=== PATIENT | male | born 1980 | race Caucasian/White ===

== ENCOUNTER 2019-04-29 16:10 | Emergency (ER) | payer OTHER ==
[~2019-04-29] VITALS: Ht 152.4 cm; Wt 64.0 kg
--- NOTE | 2019-04-29 16:14 | NUR ---
PT AMBULATED TO BED 4.
[2019-04-29 16:18] VITALS: BP 114/76
--- NOTE | 2019-04-29 16:28 | NUR ---
C/O R KNEE PAIN 12/25 X1 DAY. PT STATES HE WAS WRESTLING AND HE TWISTED HIS KNEE THE WRONG WAY AND TODAY IT HURTS. AMBULATORY BUT PAIN INCREASED WITH WEIGHT BEARING. NO DISCOLORATION. HX: ESRD (HD M,W,F SHUNT TO L UPPER ARM) RX: DOES NOT KNOW ALL OF THE NAMES Addendum: 04/29/19 at 1713 by TESSA +SWELLING
--- NOTE | 2019-04-29 16:29 | NUR ---
X-Ray at bedside.
--- NOTE | 2019-04-29 17:16 | NUR ---
EMT AT BEDSIDE FOR KNEE IMMOBILIZER.
--- NOTE | 2019-04-29 17:30 | NUR ---
Patient discharged with v/s stable. Written and verbal after care instructions given and explained. Patient verbalized understanding. Ambulatory with steady gait. All questions addressed prior to discharge. Advised to follow up with PMD.
[2019-04-29 17:31] VITALS: BP 126/71
== END 2019-04-29 17:30 | disposition home or self-care (01) ==
LOC: MED 16:10
DX: S83.91XA Sprain of unspecified site of right knee, initial encounter (principal); M17.11 Unilateral primary osteoarthritis, right knee; N18.6 End stage renal disease; Z99.2 Dependence on renal dialysis; W50.0XXA Accidental hit or strike by another person, initial encounter; Y93.89 Activity, other specified; Y92.89 Other specified places as the place of occurrence of the external cause; Y99.8 Other external cause status
CPT/HCPCS: 73562; 99283

== ENCOUNTER 2020-07-30 07:09 | Emergency (ER) | payer OTHER ==
[~2020-07-30] VITALS: Ht 162.6 cm; Wt 64.9 kg
[2020-07-30 07:20] VITALS: BP 137/66
--- NOTE | 2020-07-30 07:23 | NUR ---
TO LOBBY A/W BED VIA W/C
--- NOTE | 2020-07-30 07:30 | NUR ---
RT FOOT PAIN, SWELLING, FOR 3 DAYS, NO TRAUMA NOR INJURY NOTED
--- NOTE | 2020-07-30 07:35 | NUR ---
SEEN AND EXAMINED BY ERMD WITH ORDERS.
[2020-07-30 08:15] VITALS: BP 137/66
== END 2020-07-30 08:15 | disposition home or self-care (01) ==
LOC: MED 07:09
DX: M77.51 Other enthesopathy of right foot and ankle (principal); L03.115 Cellulitis of right lower limb; N18.6 End stage renal disease; Z99.2 Dependence on renal dialysis
CPT/HCPCS: 99283

== ENCOUNTER 2020-11-12 01:32 | Inpatient (IN) | payer OTHER ==
[~2020-11-12] VITALS: Ht 160 cm; Wt 86.2 kg
[2020-11-12] VITALS (9 sets, daily range): BP systolic 113–186; BP diastolic 69–96
--- NOTE | 2020-11-12 02:40 | NUR ---
TO BED 8 VIA W/C FROM [facility] WITH C/O SWELLING TO HANDS. 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 PT IS POOR HISTORIAN, UNABLE TO RECALL CURRENT MEDICATIONS. "I LIVE IN MY CAR AND GO TO MY SISTERS HOUSE ONCE A MONTH TO GET MY ANTI-REJECTION MEDICATIONS" "I CAME TO THE HOSPITAL TONIGHT BECAUSE MY SISTER WAS WORRIED ABOUT ME" BILATERAL PEDAL EDEMA NOTED, PITTING EDEMA BILATERAL HANDS. LUNGS ARE DIMINISHED THROUGHOUT A & P. O2 SAT ON R/A = 82-84%. DR. GUTIERREZ AT BEDSIDE FOR EXAM PMH: CRF, KIDNEY TRANSPLANT, CHF UNKNOWN ALLERGIES
--- NOTE | 2020-11-12 03:07 | NUR ---
PTS SISTER CAROLA CALLED - PTS PCP IS DR.TEJINDER CHAPMAN AND NEPHROLPGIST IS FROM [facility]
--- NOTE | 2020-11-12 03:30 | NUR ---
PT WITH POOR VENOUS ACCESS. OLD DIALYSIS SHUNT TO LEFT ARM. 22G SL ESTABLISHED RIGHT F/A, LABS DRAWN
[2020-11-12 03:44] LABS: RSV NEGATIVE (NEGATIVE)
[2020-11-12 03:53] LABS: EOSINOPHILS # (AUTO) 0.1 K/uL (0-0.4); PLATELET COUNT (AUTO) 181 K/uL (140-450)
[2020-11-12 03:56] LABS: BASOPHILS % (AUTO) 1.2 % (0.0-2.0); EOSINOPHILS % (AUTO) 2.7 % (0.0-4.0); HEMATOCRIT 33.9 % (36-52); HEMOGLOBIN 11.2 g/dL (12.0-18.0); LYMPHOCYTES # (AUTO) 0.7 K/uL (2.0-11.5); LYMPHOCYTES % (AUTO) 30.6 % (20.5-51.1); MEAN CORPUSCULAR HEMOGLOBIN 34 pg (27-31); MEAN CORPUSCULAR HGB CONC 33 g/dL (33-37); MEAN CORPUSCULAR VOLUME 101.5 fL (80-94); MONOCYTES # (AUTO) 0.2 K/uL (0.8-1.0); MONOCYTES % (AUTO) 7.8 % (1.7-9.3); NEUTROPHILS # (AUTO) 1.4 K/uL (1.8-7.7); NEUTROPHILS % (AUTO) 57.7 % (42.2-75.2); RED BLOOD CELL COUNT(AUTO) 3.34 MIL/uL (4.20-6.10); RED CELL DISTRIBUTION WIDTH 15.7 % (11.6-13.7); WHITE BLOOD COUNT (AUTO) 2.4 K/uL (4.8-10.8)
[2020-11-12] MEDS ORDERED: FUROSEMIDE 40 MG/4 ML VIAL IVP ONE (04:05)
[2020-11-12] MEDS ORDERED: PIPERACILLIN/TAZOBACTAM 3.375 GM in DEXTROSE 5% 50 ML IV ONE (04:05)
[2020-11-12 04:08] LABS: ALBUMIN 4.2 g/dL (3.4-5.0); ANION GAP 9.3 (8-16); CARBON DIOXIDE 31.6 mmol/L (21-32); CREATININE 1.7 mg/dL (0.6-1.3); POTASSIUM 3.9 mmol/L (3.5-5.1); TOTAL BILIRUBIN 0.5 mg/dL (0.0-1.0)
--- NOTE | 2020-11-12 04:15 | NUR ---
SPOKE WITH FAMILY IN LOBBY. MED LIST OBTAINED
[2020-11-12] MEDS ORDERED: TACR1CAP17 PO (04:21)
[2020-11-12] MEDS ORDERED: CALC-575 PO (04:24)
[2020-11-12] MEDS ORDERED: LEVO0.173 PO (04:24)
[2020-11-12 04:32] LABS: PROTHROMBIN TIME 10.8 secs (10.8-13.4)
[2020-11-12] MEDS ORDERED: SYN.05 PO (04:33)
[2020-11-12] MEDS ORDERED: CEL250 PO (04:33)
[2020-11-12] MEDS ORDERED: B CO1CAP11 PO (04:33)
[2020-11-12] MEDS ORDERED: VALG450T PO (04:33)
[2020-11-12] MEDS ORDERED: LIOT0.008 PO (04:33)
[2020-11-12] MEDS ORDERED: PRED5TAB8 PO (04:33)
[2020-11-12] MEDS ORDERED: SEN30 PO ×2 (04:33)
[2020-11-12] MEDS ORDERED: PIPERACILLIN/TAZOBACTAM 3.375 GM VIAL IV ONE (04:36)
[2020-11-12 04:38] LABS: C-REACTIVE PROTEIN QUANT < 0.2 mg/dL (0.0-0.9)
[2020-11-12 04:57] LABS: CKMB RELATIVE INDEX 1.1 (0.0-2.5); CREATINE KINASE MB 5.4 ng/mL (0-3.6)
--- NOTE | 2020-11-12 05:01 | NUR ---
PT SBP ELEVATED 198/75. LASIX GIVEN TO PT. WILL REASSESS. PRIOR BP'S: 203/72 AT 0458, 199/72 AT 0446, AND 195/77 AT 0430
--- NOTE | 2020-11-12 05:01 | NUR ---
Note sanjuanita in EDM - 11/12/20 at 0505 by [email or web address] PT SBP ELAVATED 198/75. LASIX GIVEN TO PT. LISE ALEXANDER. PRIOR BP'S: 203/72 AT 0458, 199/72 AT 0446, AND 195/77 AT 0430
[2020-11-12] MEDS ORDERED: HYDROcodone/APAP 5/325 MG 1 TAB TAB PO PRN ×2 (05:05→13:25)
[2020-11-12] MEDS ORDERED: MORPHINE SULFATE 2 MG/ML SYR IVP PRN ×2 (05:05→13:25)
--- NOTE | 2020-11-12 05:40 | NUR ---
REPORT GIVEN TO GUILLAUME GRAY
--- NOTE | 2020-11-12 05:55 | NUR ---
Patient will be admitted to care of GUILLAUME GRAY. Admited to TELEMETRY. Will go to room 133A. Belongings list completed. TRANSPORT BY NISHANT ATTACH TO SENIOR CLERK AND O2 CONTINUOUS AT 3L NC ACCOMPANIED BY RN AND ERT
--- NOTE | 2020-11-12 06:15 | NUR ---
RECEIVED PATIENT FROM ER NURSE VIA DARREN FOR CONTINUITY OF CARE. ALERT AND ABLE TO MAKE NEEDS KNOWN. RESPIRATIONS EVEN, UNLABORED. CONTINUES ON O2 3L VIA NC, O2SAT 93%. S1/S2 AUSCULTATED. SKIN ASSESSMENT COMPLETED. SKIN WARM, DRY AND INTACT. SALINE LOCK TO RIGHT FOREARM 22G PATENT/INTACT. PATIENT HAS GENERALIZED BODY SWELLING. ABDOMEN SOFT, NONTENDER. BOWEL SOUNDS ACTIVE x4 QUADRANTS. PATIENT IS INCONTINENT OF B/B. PLAN OF CARE DISCUSSED. VS: BP 150/73 HR 74 RR 18 T 98.3 O2SAT: 93%. PATIENT ORIENTED TO ROOM/STAFF/CALL LIGHT. MRSA SCREEN COMPLETED. PCR COMPLETED IN THE ER, PENDING RESULTS. SAFETY PRECAUTIONS IN PLACE. ISOLATION PRECAUTIONS OBSERVED. CALL LIGHT PLACED WITHIN REACH.
--- NOTE | 2020-11-12 06:53 | NUR ---
PATIENT HAS BEEN SCREENED AND CATEGORIZED MODERATE NUTRITION RISK. PATIENT WILL BE SEEN WITHIN 3-5 DAYS OF ADMISSION. 11/15/20-11/17/20 BILLY CHATTERJEE MS, RDN
--- NOTE | 2020-11-12 07:22 | NUR ---
ENDORSED PATIENT TO AM SHIFT NURSE FOR CONTINUITY OF CARE.
[2020-11-12] MEDS ORDERED: NALOXONE 0.4 MG/ML VIAL IVP ONE ×2 (11:30→16:15)
--- NOTE | 2020-11-12 11:51 | NUR ---
NARCAN GIVEN VIA IVP PER DR. HANSON'S ORDER. PATIENT IS VERY DROWSY.
--- NOTE | 2020-11-12 12:15 | NUR ---
BUTLER INSERTED PER MD ORDER WITH CLEAR URINE OUTPUT. PATIENT WITH HYPOSPADIAS. PATIENT STILL DROWSY.
[2020-11-12] MEDS: PIPERACILLIN/TAZOBACTAM 2.25 GM in DEXTROSE 5% 50 ML IV SCH ×2 (12:55→21:36)
[2020-11-12 13:20] LABS: THYROID STIMULATING HORMONE 177.64 uIU/mL (0.34-3.74)
[2020-11-12] MEDS ORDERED: ZOLPIDEM 5 MG TAB PO PRN (13:25)
[2020-11-12] MEDS ORDERED: DOCUSATE SODIUM 100 MG GELCAP PO PRN (13:25)
[2020-11-12] MEDS ORDERED: ONDANSETRON 4 MG/2 ML VIAL IM/IVP PRN (13:25)
[2020-11-12] MEDS ORDERED: POTASSIUM CHLORIDE 10 MEQ TABER PO PRN ×2 (13:25)
[2020-11-12] MEDS ORDERED: MAG SULF 2000 MG/WATER PREMIX 50 ML IV PRN ×2 (13:25)
[2020-11-12] MEDS ORDERED: ACETAMINOPHEN 325 MG TAB PO PRN (13:25)
[2020-11-12] MEDS ORDERED: LORazepam 2 MG/ML VIAL IM/IVP PRN (13:25)
[2020-11-12] MEDS: hydrALAZINE 10 MG TAB PO SCH ×2 (13:46→18:02)
--- NOTE | 2020-11-12 13:46 | NUR ---
HYDRALAZINE GIVEN FOR HIGH BP 170/69/ HR 69. PATIENT IS STILL VERY DROWSY.
[2020-11-12 14:02] LABS: APPEARANCE,URINE CLEAR (CLEAR); BILIRUBIN,URINE NEGATIVE (NEGATIVE); BLOOD, URINE 1+ (NEGATIVE); COLOR,URINE YELLOW (YELLOW); LEUKOCYTE ESTERASE ,URINE NEGATIVE (NEGATIVE); NITRITE, URINE NEGATIVE (NEGATIVE); PH,URINE 5.5 (5.0-9.0); UGLUCOSE NEGATIVE (NEGATIVE)
[2020-11-12 14:21] LABS: WBC,URINE 0-5 /HPF (0-5)
[2020-11-12 14:42] LABS: BARBITURATE, URINE NEGATIVE ng/ml (NEG <=200); BENZODIAZEPINE, URINE NEGATIVE ng/mL (NEG <=200); CANNABINOID, URINE NEGATIVE ng/mL (NEG <=50); COCAINE, URINE NEGATIVE ng/mL (NEG <=300); OPIATE, URINE POSITIVE ng/mL (NEG <=2000); PHENCYCLIDINE SCREEN,URINE NEGATIVE ng/mL (NEG <=25)
[2020-11-12] MEDS ORDERED: LEVOTHYROXINE SODIUM 100 MCG VIAL IV SCH (15:10)
[2020-11-12 15:19] LABS: PHOSPHORUS 2.1 mg/dL (2.5-4.9)
[2020-11-12 15:20] LABS: MAGNESIUM 2.2 mg/dL (1.8-2.4); THYROID STIMULATING HORMONE 132.78 uIU/mL (0.34-3.74)
--- NOTE | 2020-11-12 16:13 | NUR ---
INFORMED DR. BOCANEGRA THAT PATIENT IS STILL VERY DROWSY. NEW ORDER OBTAINED. WILL CARRY OUT.
--- NOTE | 2020-11-12 16:46 | NUR ---
NARCAN 0.2 MG GIVEN VIA IVP.
--- NOTE | 2020-11-12 17:18 | NUR ---
CT OF HEAD DONE
--- NOTE | 2020-11-12 17:30 | NUR ---
TRANSFERRED PATIENT TO ICU DUE TO MYXEDEMA COMA, PER DR. BOCANEGRA'S ORDER.
--- NOTE | 2020-11-12 18:02 | NUR ---
HYDRALAZINE GIVEN, PATIENT IS ABLE TO WAKE UP AT THIS TIME. INFORMED PATIENT THAT HE IS TRANSFERRED TO ICU. PATIENT DENIES TAKING DRUGS, UNABLE THAT TRANSFERRED HIM TO ICU. EXPLAINED TO THE PATIENT WHAT'S GOING ON, PATIENT IS ALERT TO HIS NAME, AND PLACE. BUT STILL SLEEPY. FALL ASLEEP RIGHT AFTER ANSWER SIMPLE QUESTIONS.
--- NOTE | 2020-11-12 18:27 | NUR ---
UPDATED PATIENT'S SISTER CAROLA [phone] REGARDING PATIENT'S CONDITION AND INFORMED HER PATIENT BEING TRANSFERRED TO ICU.
--- NOTE | 2020-11-12 19:14 | NUR ---
ENDORSED PATIENT TO TRUCK DRIVER'S OFFSIDER RN FOR CONTINUITY OF CARE. V/S STABLE.
--- NOTE | 2020-11-12 19:30 | NUR ---
RECEIVED CARE AND REPORT FROM DAYSHIFT RN. UPON ENTERING THE ROOM AT BEDSIDE, PATIENT EYES CLOSED, ASLEEP. PATIENT SLIGHTLY DIFFICULT TO AROUSE WITH STIMULI, ALERT AND ORIENTED X2 TO PERSON AND , ABLE TO FOLLOW MOST COMMANDS. PATIENT IS LYING IN THE BED, HOB 35 DEGREES IN A POSITION OF COMFORT. NC ON AT 3 LPM, TOLERATING WELL, SATURATION AT 98%. PATIENT HAS ORDER FOR RENAL DIET. PATIENT IS CONNECTED TO CONTINUOUS CARDIC MONITOR, HR 70 AND RR 14, NO SIGNS OF DISTRESS NOTED. IV ACCESS SITES ARE RIGHT FA 22G AND LEFT UPPER ARM AV SHUNT, NO LONGER IN USE PER DAYSHIFT RN. DRIPS CURRENTLY RUNNING ARE NS 0.9% AT TKO 5 ML/HR. PATIENT ESTIMATED WEIGHT IS APPROXIMATELY 86.1 KG. PATIENT HAS A BUTLER CATHETER IN PLACE, SECURED, PATENT AND DRAINING WELL. PATIENT IS BEING OFFLOADED FROM PRESSURE POINTS WITH US OF PILLOWS AND FREQUENT REPOSITIONING. BED LOCKED AND LOWERED INTO A POSITION OF SAFETY. WILL CONTINUE TO CLOSELY MONITOR AND FREQUENTLY ROUND THROUGHOUT THE SHIFT.
--- NOTE | 2020-11-12 20:00 | NUR ---
PATIENT CONTINUES TO REST IN A POSITION OF COMFORT, SLEEPING. NO SIGNS OF DISTRESS NOTED. WILL COTNINUE TO CLOSELY MONITOR AND FREQUENTLY ROUND.
--- NOTE | 2020-11-12 20:15 | NUR ---
DR. CRUZ CAME BEDSIDE TO ASSESS AND UPDATE ON PATIENT STATUS.
--- NOTE | 2020-11-12 20:30 | NUR ---
RECEIVED CALL FROM NUCLEAR MEDICINE. LIZBETH ON THE PHONE STATED WILL RESCHEDULE LUNG SCAN FOR THE MORNING BETWEEN 0830 AND 0900. WILL ENDORSE INFORMATION TO DAYSHIFT.
[2020-11-12] MEDS: CALCIUM CARBONATE 500 MG TAB PO SCH (21:36)
[2020-11-12] MEDS: TACROLIMUS 0.5 MG CAP PO SCH (21:37)
[2020-11-12] MEDS: MYCOPHENOLATE 250 MG CAP PO SCH (21:56)
--- NOTE | 2020-11-12 22:00 | NUR ---
PATIENT SLEEPING IN A POSITION OF COMFORT, HR 70 AND RR 14, NO SIGNS OF DISTRESS NOTED. WILL CONTINUE TO CLOSELY MONITOR AND FREQUENTLY ROUND.
[2020-11-12] MEDS: HYDROCORTISONE NA SUCC 100 MG/2 ML VIAL IV SCH (23:22)
[2020-11-13] VITALS (21 sets, daily range): BP systolic 121–148; BP diastolic 57–99
--- NOTE | 2020-11-13 | NUR ---
NEURO STATUS REMAINS UNCHANGED, CONTINUES TO BE ALERT AND ORIENTED X2, TO PERSON AND . TOLERATING CURRENT THERAPIES AND OXYGEN WELL, HR 65 AND RR 14 ON THE MONITOR. WILL CONTINUE TO CLOSELY MONITOR AND FREQUENTLY ROUND.
--- NOTE | 2020-11-13 02:00 | NUR ---
WHEN AT BEDSIDE, PATIENT SLIGHTLY MORE ALERT, ALERT AND ORIENTED X3 TO PERSON, AND TIME. ABLE TO ANSWER MOST QUESTIONS APPROPRIATELY. PATIENT CONTINUES TO BE SLEEPY AND LETHARGIC. HR 66 AND RR 18 ON THE MONITOR, NO SIGNS OF DISTRESS NOTED. TOLERATING CURRENT OXYGEN AND OTHER THERAPIES WELL. WILL CONTINUE TO CLOSELY MONITOR AND FREQUENTLY ROUND.
--- NOTE | 2020-11-13 04:00 | NUR ---
PROVIDED GOWN, LINEN CHANGE, SPONGE BATH, REPOSITIONING, SAFETY CHECKS, ELISEO CARE, AND ORAL CARE. PATIENT STILL LETHARGIC AND OCCASIONALLY DESATURATES IN SLEEP TO 85% SATURATION. RT MADE AWARE AND FOLLOWED UP WITH PATIENT. WHEN MORE AWAKE, SATURATION BETWEEN 94%-99%, PATIENT STILL ON NASAL CANULA. NO SIGNS OF DISTRESS NOTED. WILL CONTINUE TO CLOSELY MONITOR AND FREQUENTLY ROUND.
[2020-11-13] MEDS: PIPERACILLIN/TAZOBACTAM 2.25 GM in DEXTROSE 5% 50 ML IV SCH ×3 (04:37→20:45)
[2020-11-13] MEDS: HYDROCORTISONE NA SUCC 100 MG/2 ML VIAL IV SCH ×3 (04:37→20:44)
[2020-11-13 05:41] LABS: ANION GAP 7.4 (8-16); CARBON DIOXIDE 35.3 mmol/L (21-32); CREATININE 1.6 mg/dL (0.6-1.3); POTASSIUM 3.7 mmol/L (3.5-5.1)
[2020-11-13 05:43] LABS: BASOPHILS % (AUTO) 0.9 % (0.0-2.0); EOSINOPHILS % (AUTO) 0.5 % (0.0-4.0); HEMATOCRIT 32.2 % (36-52); HEMOGLOBIN 10.8 g/dL (12.0-18.0); LYMPHOCYTES # (AUTO) 0.3 K/uL (2.0-11.5); LYMPHOCYTES % (AUTO) 11.6 % (20.5-51.1); MEAN CORPUSCULAR HEMOGLOBIN 34 pg (27-31); MEAN CORPUSCULAR HGB CONC 33 g/dL (33-37); MEAN CORPUSCULAR VOLUME 101.3 fL (80-94); MONOCYTES # (AUTO) 0.1 K/uL (0.8-1.0); MONOCYTES % (AUTO) 2.8 % (1.7-9.3); NEUTROPHILS # (AUTO) 2.1 K/uL (1.8-7.7); NEUTROPHILS % (AUTO) 84.2 % (42.2-75.2); PLATELET COUNT (AUTO) 153 K/uL (140-450); RED BLOOD CELL COUNT(AUTO) 3.18 MIL/uL (4.20-6.10); RED CELL DISTRIBUTION WIDTH 16.1 % (11.6-13.7); WHITE BLOOD COUNT (AUTO) 2.4 K/uL (4.8-10.8)
[2020-11-13 05:56] LABS: CHOL/HDL RATIO 3.4 (1-4.5); MAGNESIUM 2.3 mg/dL (1.8-2.4); PHOSPHORUS 2.9 mg/dL (2.5-4.9)
--- NOTE | 2020-11-13 06:00 | NUR ---
PATIENT RESTING IN A POSITION OF COMFORT, HOB 35 DEGREES, TOLERATING OXYGEN THERAPY WELL. NO SIGNS OF DISTRESS, VERY SLEEPY AND LETHARGIC. ONCE AWAKE, ABLE TO ANSWER MOST QUESTIONS APPROPRIATELY. WILL CONTINUE TO CLOSELY MONITOR AND FREQUENTLY ROUND.
--- NOTE | 2020-11-13 07:30 | NUR ---
REPORT AND CARE ENDORSED TO DAVIDE GALAVIZ.
--- NOTE | 2020-11-13 07:31 | NUR ---
RECEIVED REPORT FROM FARMWORKER GRAIN. PT IN BED. HOB ELEVATED. PT IS LETHARGIC, DIFFICULT TO AROUSE, MOVES EXTREMITIES AT TIMES, AOX2 WHEN AWAKE, FOLLOWS COMMANDS WHEN AWAKE, NO C/O PAIN, NO SOB, RESPIRATIONS ARE EVEN AND UNLABORED, SR ON MONITOR, SKIN WARM AND DRY TO TOUCH, ABD SOFT AND NON TENDER, AFEBRILE. RFA 22G INFUSING NS TKO, WITH OLD BRENNEN AV SHUNT. SAFETY MEASURES IN PLACE. WILL CONTINUE TO MONITOR.
[2020-11-13] MEDS: MYCOPHENOLATE 250 MG CAP PO SCH ×2 (08:46→20:49)
[2020-11-13] MEDS: CINACALCET 30 MG TAB PO SCH (08:46)
[2020-11-13] MEDS: predniSONE 5 MG TAB PO SCH (08:46)
[2020-11-13] MEDS: hydrALAZINE 10 MG TAB PO SCH ×3 (08:46→17:00)
[2020-11-13] MEDS: TACROLIMUS 0.5 MG CAP PO SCH ×2 (08:47→20:45)
[2020-11-13] MEDS: CALCIUM CARBONATE 500 MG TAB PO SCH ×2 (08:47→20:45)
[2020-11-13] MEDS: FUROSEMIDE 40 MG/4 ML VIAL IVP SCH (08:48)
[2020-11-13] MEDS ORDERED: LEVOTHYROXINE 0.05 MG TAB PO SCH (09:00)
[2020-11-13] MEDS ORDERED: LEVOTHYROXINE SODIUM 100 MCG VIAL IV SCH (09:00)
[2020-11-13] MEDS ORDERED: CINACALCET 30 MG TAB PO SCH (09:00)
--- NOTE | 2020-11-13 09:02 | NUR ---
DR SOTO AT BEDSIDE, VQ SCAN ORDER WAS CANCELED LAST NIGHT BY ---, IT IS NOT NEEDED AT THIS TIME PER DR SOTO.
--- NOTE | 2020-11-13 09:10 | NUR ---
PT CONFUSED AND NONCOMPLIANT WITH PO MEDS, PT SAID HE WILL TAKE THEM LATER. IV MEDS WERE GIVEN
--- NOTE | 2020-11-13 09:25 | NUR ---
PT. WITH LOW LISSETH SCALE AT HIGH RISK, CONTINUE TO FOLLOW PRESSURE INJURY PREVENTION INTERVENTIONS. -TURN AND REPOSITION PATIENT Q 2H -ASSESS AND MONITOR SKIN CONDITION DURING POSITION CHANGE -OFFLOAD BILATERAL HEELS BY PLACING PILLOWS UNDER CALVES AT ALL TIMES, UNLESS OTHERWISE CONTRAINDICATED -PRESSURE REDISTRIBUTION BY PLACING PILLOWS AND OFFLOADING SACRALCOCCYX -KEEP SKIN CLEAN AND DRY AT ALL TIMES.
[2020-11-13 09:45] LABS: T4 (THYROXINE) <0.4 ug/dL (4.5 - 12.0)
--- NOTE | 2020-11-13 10:20 | NUR ---
SEEN BY DR BOCANEGRA, NOTIFIED OF PT'S MEDICATION NONCOMPLIANCE
--- NOTE | 2020-11-13 10:45 | NUR ---
SOCIAL WORK NOTE: Patient's Orientation Unable To Assess Information Provided By CHRISS HASSAN - BROTHER Comments SW WAS UNABLE TO MEET PATIENT AT BEDSIDE. SW COMPLETED ASSESSMENT WITH PATIENT'S BROTHER. BROTHER STATED THAT PATIENT NOW LIVES AT [address] [place] [address] WITH HIM. Ramp Agent, Realtionship and Phone Number CHRISS HASSAN BROTHER [phone] CAROLA HASSAN SISTER [phone] Healthcare Power of Cleaning Crew Member No Does Patient Have a POLST No Identifying Problems No Social Work Triggers Is A Social Work Consult Needed No Mandate Report Filed No Explanation Of Identifying Problems PATIENT IS A 40-YEAR-OLD MALE ADMITTED FOR PNEUMONIA AND CHF. PATIENT HAS PMHX OF KIDNEY TRANSPLANT. PATIENT'S BROTHER REPORTED NO HX OF MENTAL HEALTH OR SUBSTANCE ABUSE. Admitted From Home Pre-Admission Level Of Functioning Status Independent/Ambulatory Prior Resources/Services Used In Last 12 Months No Prior Resources Used Prior DME No Prior DME Used Dialysis Comments N/A Living Situation Lives With Family House Other Living Situation/Comment BROTHER STATED THAT PATIENT NOW LIVES AT [address] [place] [address] WITH HIM. Patient Had Caregiver No Home Support No Caregiver Issues Financial Issues No Known Financial Issue Referral To The Financial Counselor Needed No Factors/Needs No D/C Needs Identified Pt/Rep Participated In Discharge Plan Yes Patient/Family Agress With Discharge Plan Yes Discharge Plan Comments TENTATIVE DISCHARGE PLAN IS FOR PATIENT TO RETURN HOME. DC Plan Status Initiated
[2020-11-13] MEDS ORDERED: COMMUNICATION ORDER MC ONE (12:00)
--- NOTE | 2020-11-13 12:30 | NUR ---
NOTIFIED DR BOCANEGRA OF VERY POOR ORAL NUTRITION, ORDERED IVF D5NS 60CC/HR
[2020-11-13] MEDS: DEXT 5% /NACL 0.9% 1,000 ML IV SCH (12:47)
[2020-11-13] MEDS ORDERED: [UNRECOGNIZED DRUG - OTHER] IV SCH (13:30)
[2020-11-13] MEDS ORDERED: NACL 0.9% IV SCH (13:30)
--- NOTE | 2020-11-13 14:47 | NUR ---
PT STILL LETHARGIC AND DIFFICULT TO AROUSE, FLACC 0, NO SOB
--- NOTE | 2020-11-13 15:30 | NUR ---
NOTIFIED DR BOCANEGRA THAT PT IS STILL REFUSING PO MEDS. MAY INSERT NGT PER
--- NOTE | 2020-11-13 15:45 | NUR ---
ATTEMPTED TO INSERT NGT BUT WAS RESISTING AND REFUSING. PT FINALLY AGREED TO TAKE MEDS ORALLY. TOLERATED PO MEDS WELL
--- NOTE | 2020-11-13 16:05 | NUR ---
ACCOMPANIED PT TO NUCLEAR MED FOR VQ SCAN. TRANSPORT MONITOR ATTACHED, ON PORTABLE OXYGEN 3L
--- NOTE | 2020-11-13 17:00 | NUR ---
RETURNED FROM VQ SCAN, NO APPARENT DISTRESS, VITAL SIGNS STABLE
--- NOTE | 2020-11-13 19:15 | NUR ---
RECEIVED PATIENT FROM AM SHIFT NURSE FOR CONTINUITY OF CARE. ALERT AND ABLE TO FOLLOW SIMPLE COMMANDS. RESPIRATIONS EVEN, SLIGHTLY LABORED. CONTINUES ON O2 3L VIA NC, O2SAT 93%. S1/S2 AUSCULTATED. SKIN WARM, DRY. IV SITE NOTED TO RIGHT FOREARM 22G PATENT/INTACT, INFUSING FLUIDS WELL. NO C/O PAIN. NO S/S ACUTE DISTRESS. ABDOMEN ROUND, BOWEL SOUNDS HYPOACTIVE. BUTLER CATHETER PATENT WITH YELLOW URINE DRAINING TO GRAVITY. PLAN OF CARE DISCUSSED. SAFETY PRECAUTIONS IN PLACE. FREQUENT VISUAL MONITORING BY ALL STAFF.
[2020-11-13] MEDS: LACTULOSE 20 GM/30 ML UDC PO SCH (20:46)
--- NOTE | 2020-11-13 21:39 | NUR ---
DUE MEDS GIVEN. PATIENT RESTING COMFORTABLY IN BED. PATIENT'S SISTER CAROLA CALLED AND GAVE UPDATE REGARDING PATIENT'S CONDITION. NO C/O PAIN. NO S/S ACUTE DISTRESS. SAFETY PRECAUTIONS IN PLACE. FREQUENT MONITORING BY ALL STAFF.
--- NOTE | 2020-11-13 23:05 | NUR ---
PATIENT TURNED AND REPOSITIONED FOR COMFORT. NO S/S ACUTE DISTRESS. NO C/O PAIN. SAFETY PRECAUTIONS IN PLACE.
[2020-11-14] VITALS (12 sets, daily range): BP systolic 113–175; BP diastolic 49–102
--- NOTE | 2020-11-14 01:24 | NUR ---
PATIENT IS ASLEEP. NO S/S ACUTE DISTRESS. NO C/O PAIN. SAFETY PRECAUTIONS IN PLACE. FREQUENT VISUAL ROUNDS BY ALL STAFF.
--- NOTE | 2020-11-14 03:35 | NUR ---
PATIENT RESTING COMFORTABLY IN BED. NO S/S ACUTE DISTRESS. SAFETY PRECAUTIONS IN PLACE. FREQUENT VISUAL ROUNDS BY ALL STAFF.
[2020-11-14] MEDS: DEXT 5% /NACL 0.9% 1,000 ML IV SCH ×2 (04:55→20:48)
[2020-11-14] MEDS: PIPERACILLIN/TAZOBACTAM 2.25 GM in DEXTROSE 5% 50 ML IV SCH ×3 (04:58→20:35)
[2020-11-14] MEDS: HYDROCORTISONE NA SUCC 100 MG/2 ML VIAL IV SCH ×3 (04:58→20:36)
[2020-11-14] MEDS: LEVOTHYROXINE 0.1 MG TAB PO SCH (05:44)
--- NOTE | 2020-11-14 05:49 | NUR ---
PATIENT TURNED AND REPOSITIONED. DUE MEDS GIVEN ORDERED. NO S/S ACUTE DISTRESS. NO C/O PAIN. SAFETY PRECAUTIONS IN PLACE. FREQUENT VISUAL ROUNDS BY ALL STAFF.
[2020-11-14 05:50] LABS: BASOPHILS % (AUTO) 0.3 % (0.0-2.0); EOSINOPHILS % (AUTO) 0.7 % (0.0-4.0); HEMATOCRIT 33.3 % (36-52); HEMOGLOBIN 11.1 g/dL (12.0-18.0); LYMPHOCYTES # (AUTO) 0.4 K/uL (2.0-11.5); LYMPHOCYTES % (AUTO) 9.4 % (20.5-51.1); MEAN CORPUSCULAR HEMOGLOBIN 34 pg (27-31); MEAN CORPUSCULAR HGB CONC 33 g/dL (33-37); MEAN CORPUSCULAR VOLUME 101.2 fL (80-94); MONOCYTES # (AUTO) 0.3 K/uL (0.8-1.0); MONOCYTES % (AUTO) 6.2 % (1.7-9.3); NEUTROPHILS # (AUTO) 3.5 K/uL (1.8-7.7); NEUTROPHILS % (AUTO) 83.4 % (42.2-75.2); PLATELET COUNT (AUTO) 161 K/uL (140-450); RED BLOOD CELL COUNT(AUTO) 3.29 MIL/uL (4.20-6.10); RED CELL DISTRIBUTION WIDTH 15.9 % (11.6-13.7); WHITE BLOOD COUNT (AUTO) 4.2 K/uL (4.8-10.8)
[2020-11-14 06:24] LABS: ANION GAP 7.5 (8-16); CARBON DIOXIDE 36.3 mmol/L (21-32); CREATININE 1.9 mg/dL (0.6-1.3); POTASSIUM 3.8 mmol/L (3.5-5.1)
[2020-11-14 06:32] LABS: MAGNESIUM 2.2 mg/dL (1.8-2.4); PHOSPHORUS 3.4 mg/dL (2.5-4.9)
--- NOTE | 2020-11-14 07:07 | NUR ---
ENDORSED PATIENT TO AM SHIFT NURSE FOR CONTINUITY OF CARE.
--- NOTE | 2020-11-14 07:13 | NUR ---
RECEIVED PATIENT FROM ARCHIVES SPECIALIST NURSE. PT RESTING IN BED. ABLE TO MAKE NEEDS KNOWN. RESPIRATIONS EVEN, SLIGHTLY LABORED. CONTINUES ON O2 3L VIA NC, O2SAT 93%. SKIN WARM AND DRY TO TOUCH. IV SITE ON RFA 22G IS CLEAN, DRY, AND INTACT WITH NO SIGNS OF DISTRESS. BUTLER CATHETER PATENT WITH YELLOW URINE DRAINING TO GRAVITY WITH NO CLOTS OR SEDIMENTS. SAFETY MEASURES IN PLACE. WILL CONTINUE TO MONITOR
--- NOTE | 2020-11-14 08:33 | NUR ---
DC PLANNIN YRS OLD MALE HOMELESS PATIENT WHO LIVES IN HIS CAR WAS ADMITTED FROM ER WITH A DX OF PNEUMONIA CHF. P HAS A HX OF KIDNEY TRANSPLANT IN 2020 AND HYPOTHYROIDISM. CXR SHOWED PNEUMONIA. RAPID COVID TEST AND PCR NEGATIVE. CT CHEST AND VQ SCAN SHOWED LOW PROBABILITY OF PE. HEAD CT SOWED SINUS DISEASE. 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 STARTED IV LASIX AND ZOSYN IV ABX , BLOOD AND URINE CULTURE PENDING. CONSULTED WITH PULMO AND NEPHRO. DC PLAN PER PT RESPONSE TO THE TREATMENT. CM TO FOLLOW Addendum: 11/20/20 at 1156 by Lizy Cole RN DC PLANNING: PER DR BOJORQUEZ PT REFUSED TO GO TO [facility]. NEW ORDER DC HOME WITH HOME HEALTH FAXED TO [facility] FOR PT. CM TO FOLLOW Addendum: 11/20/20 at 1423 by Vincent WRIGHT [facility] FAXED PHYSICIANS ORDERS TO [facility]. [facility] CONTACTED [facility] AND SPOKE TO YASMINE [phone]. PER YASMINE, SHE WILL CONTACT [facility] ONCE CLINICALS HAVE BEEN REVIEWED. Addendum: 11/20/20 at 1457 by Vincent WRIGHT [facility] WAS CONTACTED BY FROM [facility]. PER SHE IS ABLE TO TAKE PATIENT. [facility] NOTIFIED GUILLAUME NEGRON. NO FURTHER NEEDS IDENTIFIED.
[2020-11-14] MEDS: FUROSEMIDE 40 MG/4 ML VIAL IVP SCH (08:43)
[2020-11-14] MEDS: LACTULOSE 20 GM/30 ML UDC PO SCH ×2 (08:44→21:00)
[2020-11-14] MEDS: hydrALAZINE 10 MG TAB PO SCH ×4 (08:46→17:00)
[2020-11-14] MEDS: CALCIUM CARBONATE 500 MG TAB PO SCH ×2 (08:47→21:00)
[2020-11-14] MEDS: TACROLIMUS 0.5 MG CAP PO SCH ×2 (08:47→21:00)
[2020-11-14] MEDS: predniSONE 5 MG TAB PO SCH (08:47)
[2020-11-14] MEDS: CINACALCET 30 MG TAB PO SCH (09:02)
[2020-11-14] MEDS: MYCOPHENOLATE 250 MG CAP PO SCH ×2 (09:02→21:27)
--- NOTE | 2020-11-14 09:45 | NUR ---
ADMINISTERED SCHED MED PRESCRIBED PER MD ORDER. PT TOLERATED FAIRLY. PT DIFFICULT IN COOPERATION IN MEDICATION EDUCATION. PT WANTS TO JUST SLEEP INSTEAD OF TAKING MEDS. PT TOOK SCHED MED AFTER EDUCATION. WILL CONTINUE TO MONITOR
--- NOTE | 2020-11-14 11:40 | NUR ---
SISTER CAROLA CALLED AND WANTED AN UPDATE. UPDATE GIVEN TO SISTER. CAROLA VERBALIZED UNDERSTANDING. SAFETY MEASURES IN PLACE. WILL CONTINUE TO MONITOR
--- NOTE | 2020-11-14 13:15 | NUR ---
PT REFUSING TO TAKE MEDS. PT REFUSING TO COOPERATE AND OPEN MOUTH FOR PROPER MEDICATION EDUCATION. PT YELLS "NO! I DON'T WANNA TAKE IT!" EDUCATED PT ON PURPOSE OF HYDRALAZINE PT STATED "I DON'T CARE I DO NOT WANT IT." DR. SAHRA MCCLELLAN. AWAITING ORDERS
[2020-11-14] MEDS ORDERED: hydrALAZINE 20 MG/ML VIAL IVP PRN (14:25)
--- NOTE | 2020-11-14 14:33 | NUR ---
PT BP 163/102, 79 BPM. ADMINISTERED PRN PRESCRIBER PER MD ORDER. PT TOLERATED WELL. SAFETY MEASURES IN PLACE. WILL CONTINUE TO MONITOR
--- NOTE | 2020-11-14 16:00 | NUR ---
PT ASLEEP IN BED. AROUSABLE TO VERBAL AND TACTILE STIMULI. ABLE TO MAKE NEEDS KNOWN. RESPIRATIONS EVEN AND UNLABORED WITH NO SOB OR RESPIRATORY DISTRESS. NO SIGNS OF DISTRESS. SAFETY MEASURES IN PLACE. WILL CONTINUE TO MONITOR
--- NOTE | 2020-11-14 17:00 | NUR ---
AFTER SEVERAL ATTEMPTS, PT STILL NONCOMPLIANT WITH HIS PO MEDS. UPON ADMINISTERING, PT DOES NOT WANT TO OPEN MOUTH AND FOLLOW DIRECTIONS. EDUCATED PT ON IMPORTANCE OF BP MED MAINTENANCE. PT BECAME UPSET AND STATED "GO AWAY!" AND REFUSED TO OPEN HIS MOUTH. MD AND CHARGE AWARE. SAFETY MEASURES IN PLACE. WILL CONTINUE TO MONITOR
--- NOTE | 2020-11-14 18:30 | NUR ---
PT HAD SMALL BOWEL MOVEMENT. CLEANED PT AND REPOSITIONED HIM. PT TOLERATED FAIRLY. SAFETY MEASURES IN PLACE. WILL CONTINUE TO MONITOR
--- NOTE | 2020-11-14 19:07 | NUR ---
ENDORSED AT BEDSIDE TO NIGHTSHIFT NURSE FOR CONTINUITY OF CARE. PT IS STABLE
--- NOTE | 2020-11-14 19:08 | NUR ---
RECEIVED BEDSIDE REPORT FROM DAY RN. PT APPEARS TO BE SLEEPING WITH EYES CLOSED. RESPIRATIONS ARE EQUAL AND UNLABORED ON 3L NC SAT WELL 96%. IV ON R FA 22G IVF INFUSING PER ORDERS. SKIN IS WARM AND DRY TO THE TOUCH. BUTLER CATH DRAINING CLEAR YELLOW URINE BY GRAVITY. PT IS ON STANDARD ISOLATION. CALL LIGHT IS WITHIN REACH. WILL CONTINUE TO MONITOR.
[2020-11-14] MEDS ORDERED: CRUSHER, PILL MC ONE (20:30)
--- NOTE | 2020-11-14 21:27 | NUR ---
ADMINISTERED SCHED MEDS PER ORDER. PT DIFFICULT IN COOPERATION KEPT REFUSING MEDICATIONS. PT STATES, "NO." PT SPITTING AT NURSE. PT WANTS TO JUST SLEEP INSTEAD OF TAKING MEDS. CALLED PATIENT'S SISTER AND BROTHER TO HELP EDUCAT PT ON IMPORTANCE. LACTULOSE AND OSCAL NOT GIVEN. PER PT'S SISTER PT NO LONGER TAKES PROGRAF MED NOT GIVEN WILL F/U IN AM WITH MD. PT TOOK PO CELLCEPT AFTER CONTINUOS ENCOURAGEMENT AND EDUCATION. ALL NEEDS MET. WILL CONTINUE TO MONITOR.
--- NOTE | 2020-11-14 22:04 | NUR ---
PT APPEARS TO BE ASLEEP WITH EYES CLOSED. CHEST RISE AND FALL NOTED. NO S/S OF DISTRESS. WILL CONTINUE TO MONITOR.
[2020-11-15] VITALS (15 sets, daily range): BP systolic 125–167; BP diastolic 62–107
--- NOTE | 2020-11-15 00:01 | NUR ---
ROUNDS MADE. PATIENT APPEARS TO BE SLEEPING. CHEST RISE AND FALL NOTED. CALL LIGHT IS WITHIN REACH.
--- NOTE | 2020-11-15 02:02 | NUR ---
MADE ROUNDS. PATIENT APPEARS TO BE SLEEPING. CHEST RISE AND FALL NOTED.CALL LIGHT IS WITHIN REACH.
[2020-11-15] MEDS: PIPERACILLIN/TAZOBACTAM 2.25 GM in DEXTROSE 5% 50 ML IV SCH ×3 (04:28→20:37)
[2020-11-15] MEDS: HYDROCORTISONE NA SUCC 100 MG/2 ML VIAL IV SCH ×3 (04:28→20:27)
--- NOTE | 2020-11-15 04:28 | NUR ---
PATIENT WAS CLEANED AND REPOSITION. SELENE MEDICATIONS GIVEN PER ORDERS. ALL SAFETY MEASURES ARE IN PLACE. WILL CONTINUE TO MONITOR.
[2020-11-15] MEDS: LEVOTHYROXINE 0.1 MG TAB PO SCH (06:01)
[2020-11-15 06:02] LABS: BASOPHILS % (AUTO) 0.4 % (0.0-2.0); EOSINOPHILS % (AUTO) 0.2 % (0.0-4.0); HEMATOCRIT 32.2 % (36-52); HEMOGLOBIN 10.6 g/dL (12.0-18.0); LYMPHOCYTES # (AUTO) 0.3 K/uL (2.0-11.5); LYMPHOCYTES % (AUTO) 9.1 % (20.5-51.1); MEAN CORPUSCULAR HEMOGLOBIN 34 pg (27-31); MEAN CORPUSCULAR HGB CONC 33 g/dL (33-37); MEAN CORPUSCULAR VOLUME 103.3 fL (80-94); MONOCYTES # (AUTO) 0.2 K/uL (0.8-1.0); MONOCYTES % (AUTO) 5.4 % (1.7-9.3); NEUTROPHILS # (AUTO) 3.2 K/uL (1.8-7.7); NEUTROPHILS % (AUTO) 84.9 % (42.2-75.2); PLATELET COUNT (AUTO) 176 K/uL (140-450); RED BLOOD CELL COUNT(AUTO) 3.11 MIL/uL (4.20-6.10); RED CELL DISTRIBUTION WIDTH 16.1 % (11.6-13.7); WHITE BLOOD COUNT (AUTO) 3.8 K/uL (4.8-10.8)
[2020-11-15 06:51] LABS: ANION GAP 8.5 (8-16); CREATININE 1.8 mg/dL (0.6-1.3); POTASSIUM 3.5 mmol/L (3.5-5.1)
--- NOTE | 2020-11-15 07:15 | NUR ---
GAVE BEDSIDE REPORT TO DAY RN. PT ENDORSED IN STABLE CONDITION.
--- NOTE | 2020-11-15 07:20 | NUR ---
RECEIVED BEDSIDE REPORT FROM NIGHTSHIFT NURSE. PT RESTING IN BED. ABLE TO MAKE SOME NEEDS KNOWN. RESPIRATIONS EVEN AND UNLABORED WITH NO SOB OR RESPIRATORY DISTRESS. SKIN WARM AND DRY TO TOUCH. IV SITE IN BRITTANY 20G IS CLEAN, DRY, AND INTACT. SAFETY MEASURES IN PLACE. WILL CONTINUE TO MONITOR
[2020-11-15] MEDS: CINACALCET 30 MG TAB PO SCH (08:50)
[2020-11-15] MEDS: CALCIUM CARBONATE 500 MG TAB PO SCH ×2 (08:54→20:31)
[2020-11-15] MEDS: MYCOPHENOLATE 250 MG CAP PO SCH ×2 (08:56→20:38)
[2020-11-15] MEDS: predniSONE 5 MG TAB PO SCH (08:58)
[2020-11-15] MEDS: hydrALAZINE 10 MG TAB PO SCH ×3 (08:58→17:57)
[2020-11-15] MEDS: FUROSEMIDE 40 MG/4 ML VIAL IVP SCH (08:58)
[2020-11-15] MEDS: LACTULOSE 20 GM/30 ML UDC PO SCH ×2 (08:58→20:30)
[2020-11-15] MEDS: TACROLIMUS 0.5 MG CAP PO SCH (09:00)
[2020-11-15] MEDS ORDERED: LEVOTHYROXINE SODIUM 100 MCG VIAL IV SCH (09:22)
--- NOTE | 2020-11-15 09:30 | NUR ---
PT REFUSING TO TAKE PO MEDS. PT SCREAMS "NO!" WHEN ATTEMPTING TO ADMINISTER MEDS. PT TURNS HEAD TO PREVENT ADMINISTRATION AND PT SPITS MEDICATION OUT WHEN GIVEN TO PATIENT. PT STARTED TO GET ANGRY AND COMBATIVE WHILE SCREAMING PROFANITIES AT STAFF. EDUCATED PT ON MEDICATION PROTOCOL AND PT STATED "GO AWAY!" AND CONTINUED PROFANITIES. PT DID NOT WANT TO EAT BREAKFAST. PT STATED THAT HE IS NOT HUNGRY AND WANTS TO BE LEFT ALONE. IV AND SQ MEDS WERE GIVEN. WILL ATTEMPT AGAIN. MD AND CHARGE AWARE. WILL CONTINUE TO MONITOR
--- NOTE | 2020-11-15 09:40 | NUR ---
ABG RESULTS GIVEN TO NO NEW ORDERS AT THIS TIME.
--- NOTE | 2020-11-15 10:00 | NUR ---
PT HAD LARGE BM. CLEANED AND REPOSITIONED PATIENT. PT TOLERATED FAIRLY WHILE PT YELLING "STOP!" AT STAFF. EDUCATED PT ON PROPER BATHROOM HYGIENE AND PT STILL STATED "STOP IT!" SAFETY MEASURES IN PLACE. WILL CONTINUE TO MONITOR
--- NOTE | 2020-11-15 10:20 | NUR ---
PT NEEDS PICC LINE. OBTAINED CONSENT FROM SISTER CAROLA [phone] WITH VERIFICATION FROM SECOND NURSE. WILL PAGE PICC LINE NURSE.
--- NOTE | 2020-11-15 10:30 | NUR ---
PT TAKING OFF GOWN, PULLING AT IV LINE, AND TAKING OFF NASAL CANNULA. PT AAOX1. REORIENTED PT BUT PT STILL CONFUSED. WILL CONTINUE TO MONITOR
--- NOTE | 2020-11-15 10:43 | NUR ---
SPOKE WITH PICC LINE AND JUDI IS GOING TO BE THE NURSE INSERTING FOR PT. AWAITING CALL FROM JUDI. WILL CONTINUE TO MONITOR
--- NOTE | 2020-11-15 11:03 | NUR ---
SPOKE TO AND GAVE ABG RESULTS PHYSICIAN STATES TO MONITOR PT CLOSELY NO NEW ORDERS AT THIS. ABG TO BE ORDERED FOR TOMORROW MORNING.
--- NOTE | 2020-11-15 11:40 | NUR ---
PER THE PICC LINE NURSE BILL, NEED NEPHRO CLEARANCE PRIOR TO PICC LINE INSERTION. PAGED. DR. GAMBINO AND PER DR. GAMBINO, PT IS CLEAR FOR PICC LINE PLACEMENT. SAFETY MEASURES IN PLACE. WILL CONTINUE TO MONITOR
--- NOTE | 2020-11-15 12:00 | NUR ---
INSERTED NG TUBE PRESCRIBED PER MD ORDER. PT TOLERATING POORLY. PT MOVING HEAD AND REFUSING TO COOPERATE. SUCCESSFULLY INSERTED NGT AWAITING CHEST XRAY. WILL CONTINUE TO MONITOR
--- NOTE | 2020-11-15 12:30 | NUR ---
PICC LINE NURSE BILL IS HERE. REPORT GIVEN AT BEDSIDE. NEWLY INSERTED PICC LINE IN BRITTANY IS CLEAN, DRY, AND INTACT. PT TOLERATED WELL. SAFETY MEASURES IN PLACE. WILL CONTINUE TO MONITOR
--- NOTE | 2020-11-15 13:15 | NUR ---
PICC LINE IS CLEARED FOR USE. ADMINSITERED SCHED MED PRESCRIBED PER MD ORDER. PT TOLERATED FAIRLY. PT LETHARGIC AND SLEEPY. SAFETY MEASURES IN PLACE. WILL CONTINUE TO MONITOR
[2020-11-15] MEDS: DEXT 5% /NACL 0.9% 1,000 ML IV SCH (14:11)
--- NOTE | 2020-11-15 15:15 | NUR ---
TUBE FEEDING RECOMMENDATIONS FOR FNS CONSULT: GLUCERNA 1.2 @ 60 ML/HR. START AT 10 ML/HR AND INCREASE BY 10 ML/HR Q4H TO AVOID REFEEDING SYNDROME. FREE WATER FLUSH OF 50 ML Q4H. -THIS WILL PROVIDE 1728 KCAL AND 86 GM OF PROTEIN MEETING ADEQUATE NUTRITIONAL NEEDS. JAKE MILLER RD
--- NOTE | 2020-11-15 15:22 | NUR ---
PT HAD EPISODE OF MED BM. CLEANED UP PATIENT AND REPOSITIONED HIM. PT TOLERATED FAIRLY. PT BECAME ANGRY AND COMBATIVE WHEN TURNING AND REPOSITIONING. EDUCATED PT ON HOW TO PROPERLY TREAT [facility] DURING THE HOSPITAL STAY. PT RESPONDED WITH "SHUT UP AND LEAVE ME ALONE!" WILL CONTINUE TO MONITOR
--- NOTE | 2020-11-15 16:30 | NUR ---
STARTED PT ON TUBE FEEDINGS. NO RESIDUAL PRIOR TO ADMINISTERING. STARTED GLUCERNA 1.2 AT 10ML. WILL ENDORSE TO NIGHTSHIFT TO INCREASE RATE AT 2030 TO 20ML IF PT TOLERATING WELL. WILL CONTINUE TO MONITOR
--- NOTE | 2020-11-15 17:15 | NUR ---
ADMINISTERED SCHED MED PRESCRIBED PER MD ORDER VIA NGT. PT TOLERATED WELL. SAFETY MEASURES IN PLACE. WILL CONTINUE TO MONITOR
--- NOTE | 2020-11-15 17:58 | NUR ---
PT HAD A LARGE BM. CLEANED AND REPOSITIONED PATIENT. PT TOLERATED FAIRLY. PT SCREAMING "STOP!" AT STAFF WHILE TURNING, CHANGING, AND CLEANING. SAFETY MEASURES IN PLACE. WILL CONTINUE TO MONITOR
--- NOTE | 2020-11-15 19:25 | NUR ---
ENDORSED AT BEDSIDE FOR CONTINUITY OF CARE. PT IS STABLE
--- NOTE | 2020-11-15 19:30 | NUR ---
RECEIVED CARE REPORT FROM DAYSHIFT RN. UPON ARRIVING BEDSIDE, PATIENT ALERT AND ORIENTED X2 TO PERSON AND PLACE, OCCASIONALLY CONFUSED AND SHOUTING AT TIMES. HOB 35 DEGREES PATIENT IS ON NASAL CANULA 5 LPM, TOLERATING WELL, RR 14 AND OXYGEN SATURATION AT 99%, NO SIGNS OF DISTRESS NOTED. PATIENT HAS AN NG TUBE IN THE LEFT NARE, PATENT, INTACT, AUSCULTATED, ASPIRATED AND SECURED TO THE PATIENT. RESIDUALS CURRENTLY 5 ML, TOLERATING WELL. TUBE FEEDING ORDER GLUCERNA 1.2 AT A RATE OF 10 ML/HR, FWF 50 ML Q4. PATIENT CONNECTED TO CONTINUOUS CARDIAC MONITORING, NSR AT Q76 BPM ON THE MONITOR, WILL CONTINUE TO MONITOR. IV ACCESS SITES INCLUDE RIGHT UPPER ARM PICC LINE DOUBLE LUMEN AND OLD/NOT USED LEFT AV SHUNT. PATIENT DRIPS CURRENTLY RUNNING ARE D5/0.9% NS AT 60 ML/HR. PATIENT, TOLERATING WELL. APPROXIMATE WEIGHT IS 86.1 KG. PATIENT HAS A BUTLER CATHETER IN PLACE, SECURED, PATENT AND DRAINING WELL. SKINS INTACT, OLD SCARS FROM PREVIOUS SURGERIES NOTED ON THE ABDOMEN AND CHEST. PATIENT FOUND WITH BILATERAL SOFT WRIST RESTRAINTS ON WITH MD ORDER. WRIST RESTRAINTS TO BE REMOVED Q 2 HOURS FOR 15 MINUTES THROUGHOUT SHIFT. WRIST PMSC'S INTACT AND WNL. PATIENT BEING OFFLOADED FROM PRESSURE POINTS WITH USE OF PILLOWS AND FREQUENT REPOSITIONING. BED LOCKED AND LOWERED INTO A POSITION OF SAFETY. WILL CONTINUE TO CLOSELY MONITOR AND FREQUENTLY ROUND THROUGHOUT THE SHIFT.
--- NOTE | 2020-11-15 20:45 | NUR ---
UPDATED FAMILY ON PATIENT STATUS.
--- NOTE | 2020-11-15 22:00 | NUR ---
PATIENT CONTINUES TO REST IN A POSITION OF COMFORT, TOLERATING NC 5 LPM WELL, NO SIGNS OF DISTRESS. REMOVED BILATERAL WRIST RESTRAINTS AT THIS TIME, PATIENT ASLEEP, MONITORING CLOSELY. HR 84 AND RR 16 ON THE MONITOR. WILL CONTINUE TO CLOSELY MONITOR AND FREQUENTLY ROUND.
[2020-11-16] VITALS (17 sets, daily range): BP systolic 114–154; BP diastolic 47–85
--- NOTE | 2020-11-16 | NUR ---
PATIENT CONTINUES TO REST IN A POSITION OF COMFORT, HOB 35 DEGREES, TOLERATING OXYGEN THERPY WELL, SATURATION AT 96%. HR 79 ON THE MONITOR, NO SIGNS OF DISTRESS NOTED. PATIENT HAD 1 BM, LIQUID STOOL, BROWN IN COLOR. PATIENT GOWN, BED LINENS AND PATIENT CLEANED/CHANGED/DRY. CONTINUE TO FREQUENTLY REPOSITION PATIENT. PATIENT CONTINUES TO REMAIN CONFUSED WHEN COMMUNICATING WITH NURSES EDUCATOR. WILL CONTINUE TO CLOSELY MONITOR AND FREQUENTLY ROUND.
--- NOTE | 2020-11-16 02:00 | NUR ---
HR 71, RR 14, OXYGEN 96% ON THE MONITOR, NO SIGNS OF DISTRESS NOTED. PATIENT CONTINUES TO SLEEP IN A POSITION OF COMFORT, TOLERATING CURRENT THERAPIES WELL. FREQUENTLY REPOSITIONED, RESTRAINTS CONTINUE TO BE OFF, WILL CONTINUE TO CLOSELY MONITOR AND FREQUENTLY ROUND.
--- NOTE | 2020-11-16 04:00 | NUR ---
REPOSITIONED FREQUENTLY, GOWN CHANGE, SPONGE BATH, AND SAFETY CHECKS. RESTRAINTS CONTINUE TO BE OFF AT THIS TIME, CLOSE MONITORING OF PATIENT, STILL RESTING AND TRYING TO SLEEP. PATIENT STATED HAVING SOME BACK PAIN. PRN PAIN MEDICATION GIVEN. HR 81, RR 16, AND SATURATION 95%, CONTINUES TO TOLERATE NC AND OTHER THERAPIES WELL. WILL CONTINUE TO CLOSELY MONITOR AND FREQUENTLY ROUND.
[2020-11-16] MEDS: PIPERACILLIN/TAZOBACTAM 2.25 GM in DEXTROSE 5% 50 ML IV SCH ×3 (05:05→20:07)
[2020-11-16] MEDS: HYDROCORTISONE NA SUCC 100 MG/2 ML VIAL IV SCH (05:05)
[2020-11-16 05:21] LABS: BASOPHILS % (AUTO) 0.2 % (0.0-2.0); EOSINOPHILS % (AUTO) 0.1 % (0.0-4.0); HEMATOCRIT 34.6 % (36-52); HEMOGLOBIN 11.3 g/dL (12.0-18.0); LYMPHOCYTES # (AUTO) 0.4 K/uL (2.0-11.5); MEAN CORPUSCULAR HEMOGLOBIN 33 pg (27-31); MEAN CORPUSCULAR HGB CONC 33 g/dL (33-37); MEAN CORPUSCULAR VOLUME 101.5 fL (80-94); MONOCYTES # (AUTO) 0.1 K/uL (0.8-1.0); MONOCYTES % (AUTO) 3.7 % (1.7-9.3); NEUTROPHILS # (AUTO) 2.6 K/uL (1.8-7.7); PLATELET COUNT (AUTO) 159 K/uL (140-450); RED CELL DISTRIBUTION WIDTH 15.8 % (11.6-13.7); WHITE BLOOD COUNT (AUTO) 3.1 K/uL (4.8-10.8)
[2020-11-16 05:41] LABS: ANION GAP 5.1 (8-16); CREATININE 1.5 mg/dL (0.6-1.3)
[2020-11-16 05:47] LABS: PHOSPHORUS 1.2 mg/dL (2.5-4.9)
[2020-11-16] MEDS: DEXT 5% /NACL 0.9% 1,000 ML IV SCH (05:55)
--- NOTE | 2020-11-16 06:00 | NUR ---
PATIENT ASLEEP, NO SIGNS OF DISTRESS NOTED. TOLERATING CURRENT THERAPIES WELL. NO COMPLAINTS OF PAIN. HR 62, RR 14, SATURATION 97%. RESTING IN A POSITION OF COMFORT. WILL CONTINUE TO CLOSELY MONITOR AND FREQUENTLY ROUND.
[2020-11-16 06:05] LABS: POTASSIUM 2.9 mmol/L (3.5-5.1)
[2020-11-16 06:07] LABS: CARBON DIOXIDE 40.8 mmol/L (21-32)
--- NOTE | 2020-11-16 06:15 | NUR ---
CALLED FOR DR. BOCANEGRA TO REPORT CRITICAL LAB VALUES OF POTASSIUM 2.9 AND CO2 40.8. SPOKE WITH DR. BENAVIDES THE SIMULATION TECHNICIAN MD, GIVEN ORDER TO GIVE K RIDER 40 MEQ. WILL CARRY OUT ORDERS.
[2020-11-16] MEDS ORDERED: KCL 20 MEQ/WATER INJ PREMIX 200 ML IV SCH (06:30)
--- NOTE | 2020-11-16 07:15 | NUR ---
GAVE REPORT AND ENDORSED CARE TO DAVIDE GALAVIZ.
--- NOTE | 2020-11-16 07:20 | NUR ---
RECEIVED REPORT FROM NIGHT RN FOR CONTINUITY OF CARE. PATIENT IS AO TO SELF AND CURRENTLY RESTING. NO SIGNS OF DISTRESS OR PAIN. SR ON MONITOR. 5L NC. BRITTANY PICC INFUSING D5NS AT 60 ML/HR. LEFT AV FISTULA ACCESS NOT IN USE. NG TUBE IN PLACE, RUNNING GLUCERNA AT 30 ML/H WITH 50 ML FWF Q6H. BUTLER CATH IN PLACE. SAFETY MEASURES, EXTENSION SPECIALIST, AND PULSE OXIMETER IN PLACE. BED IN LOW POSITION. HEAD OF BED AT 30 DEGREES. WILL CONTINUE TO MONITOR.
--- NOTE | 2020-11-16 08:35 | NUR ---
DR. BENAVIDES ROUNDING AND UPDATED ON PATIENT CONDITION. WILL CONTINUE TO MONITOR.
[2020-11-16] MEDS ORDERED: LEVOTHYROXINE SODIUM 100 MCG VIAL IV SCH (09:00)
--- NOTE | 2020-11-16 09:22 | NUR ---
P T REFUSED ABG AT THIS TIME GUILLAUME HERNANDEZ
[2020-11-16] MEDS: CINACALCET 30 MG TAB PO SCH (10:05)
[2020-11-16] MEDS: CALCIUM CARBONATE 500 MG TAB PO SCH ×2 (10:06→20:11)
[2020-11-16] MEDS: MYCOPHENOLATE 250 MG CAP PO SCH ×2 (10:06→20:10)
[2020-11-16] MEDS: LACTULOSE 20 GM/30 ML UDC PO SCH ×2 (10:06→20:11)
[2020-11-16] MEDS: hydrALAZINE 10 MG TAB PO SCH ×3 (10:06→17:14)
[2020-11-16] MEDS: predniSONE 5 MG TAB PO SCH (10:07)
--- NOTE | 2020-11-16 10:30 | NUR ---
CHECKED ON PATIENT, ADMINISTERED SCHEDULED AM MEDS, PATIENT RESTING WILL CONTINUE TO MONITOR.
--- NOTE | 2020-11-16 12:15 | NUR ---
CHECKED ON PATIENT, NO SIGNS OF DISTRESS OR PAIN. WILL CONTINUE TO MONITOR.
--- NOTE | 2020-11-16 14:16 | NUR ---
11/16/20 RD INITIAL ASSESSMENT COMPLETED PLEASE REFER TO NUTRITION ASSESSMENT UNDER CARE ACTIVITY FOR ESTIMATED NUTRITIONAL NEEDS. 1. RECOMMENDED GLUCERNA 1.2 @ 60 ML/HR -THIS PROVIDES 1440 ML OF VOLUME, 1728 KCAL AND 86 GM OF PROTEIN. 2. RECOMMEND FLUSH OF 50 ML Q4H 3. IF/WHEN PATIENT BECOMES MORE ALERT AND ORIENTATED RECOMMEND A SWALLOW EVALUATION 4. RD TO FOLLOW-UP 2-3 DAYS, HIGH RISK JAKE MILLER, JACK
--- NOTE | 2020-11-16 14:45 | NUR ---
CHECKED ON PATIENT, NO SIGNS OF DISTRESS. PROVIDED ORAL CARE, HYGIENE CARE, AND BUTLER CARE. WILL CONTINUE TO MONITOR.
[2020-11-16 14:58] LABS: ANION GAP 3.8 (8-16); CREATININE 1.5 mg/dL (0.6-1.3); POTASSIUM 3.2 mmol/L (3.5-5.1)
[2020-11-16 15:02] LABS: CARBON DIOXIDE 41.4 mmol/L (21-32)
[2020-11-16 15:05] LABS: TACROLIMUS 5.8 ng/mL (2.0 - 20.0)
--- NOTE | 2020-11-16 17:35 | NUR ---
CHECKED ON PATIENT, ADMINISTERED EVENING MEDS. NO SIGNS OF DISTRESS OR PAIN. WILL CONTINUE TO MONITOR.
--- NOTE | 2020-11-16 18:55 | NUR ---
CHECKED ON PATIENT, NO SIGNS OF DISTRESS OR PAIN. WILL CONTINUE TO MONITOR.
--- NOTE | 2020-11-16 19:26 | NUR ---
ENDORSED CARE TO LOW VOLTAGE TECHNICIAN NURSE, RUCHI GALAVIZ, FOR CONTINUITY OF CARE. Addendum: 11/18/20 at 1727 by Rhonda Garrett RN RN RESTRAINT ON FROM 0700 TO 1430 (7.5 HOURS).
--- NOTE | 2020-11-16 20:00 | NUR ---
RECEIVED REPORT FROM DAY SHIFT RN. PT IS ALERT AND ORIENTED X3. ABLE TO MAKE NEEDS KNOWN TO STAFF. RESPIRATION EVEN AND UNLABORED. PT ON 1L NASAL CANNULA. ORAL MUCOSA PINK AND MOIST. SKIN WARM, DRY AND INTACT. ACCESS ON THE RIGHT UPPER ARM PICC. ASYMPTOMATIC, PATENT AND INTACT, INFUSING FLUIDS ORDERED. NON-FUNCTIONING OLD AV SHUNT ON THE LEFT ARM. LEFT ARM PRECAUTION. NGT TO FEEDING- GLUCERNA 1.2 60MLS/HR, FWF-50ML Q6, BUTLER CATH IN PLACE. SAFETY PRECAUTIONS IN PLACE. BED IN LOW AND LOCKED POSITION, SIDE RAILS UP. STANDARD PRECAUTION MAINTAINED.
[2020-11-17] VITALS (8 sets, daily range): BP systolic 109–143; BP diastolic 43–77
--- NOTE | 2020-11-17 | NUR ---
PT WAS TURNED AND REPOSITIONED. PRESSURE AREAS OFF LOADED. NO DISTRESS OBSERVED. WILL CONTINUE TO MONITOR.
--- NOTE | 2020-11-17 02:33 | NUR ---
PT RESTING IN BED WITH EYES CLOSED. PT TOLERATING FEEDING WELL. WILL CONTINUE TO MONITOR.
[2020-11-17] MEDS: DEXT 5% /NACL 0.9% 1,000 ML IV SCH ×2 (03:06→16:14)
[2020-11-17] MEDS: PIPERACILLIN/TAZOBACTAM 2.25 GM in DEXTROSE 5% 50 ML IV SCH ×3 (05:00→22:28)
--- NOTE | 2020-11-17 05:00 | NUR ---
PT HAD A BOWEL MOVEMENT. PT WAS CLEANED, TURNED AND REPOSITIONED. NO DISTRESS NOTED. WILL CONTINUE TO MONITOR.
[2020-11-17 05:59] LABS: BASOPHILS % (AUTO) 0.1 % (0.0-2.0); EOSINOPHILS % (AUTO) 1.1 % (0.0-4.0); HEMATOCRIT 31.2 % (36-52); HEMOGLOBIN 10.2 g/dL (12.0-18.0); LYMPHOCYTES # (AUTO) 0.4 K/uL (2.0-11.5); LYMPHOCYTES % (AUTO) 15.3 % (20.5-51.1); MEAN CORPUSCULAR HEMOGLOBIN 34 pg (27-31); MEAN CORPUSCULAR HGB CONC 33 g/dL (33-37); MEAN CORPUSCULAR VOLUME 103.1 fL (80-94); MONOCYTES # (AUTO) 0.1 K/uL (0.8-1.0); MONOCYTES % (AUTO) 4.6 % (1.7-9.3); NEUTROPHILS # (AUTO) 2.1 K/uL (1.8-7.7); NEUTROPHILS % (AUTO) 78.9 % (42.2-75.2); PLATELET COUNT (AUTO) 131 K/uL (140-450); RED BLOOD CELL COUNT(AUTO) 3.03 MIL/uL (4.20-6.10); RED CELL DISTRIBUTION WIDTH 16.5 % (11.6-13.7); WHITE BLOOD COUNT (AUTO) 2.7 K/uL (4.8-10.8)
[2020-11-17 06:14] LABS: ANION GAP 5.2 (8-16); CARBON DIOXIDE 40.1 mmol/L (21-32); CREATININE 1.4 mg/dL (0.6-1.3); POTASSIUM 3.3 mmol/L (3.5-5.1)
[2020-11-17 06:19] LABS: PHOSPHORUS 1.2 mg/dL (2.5-4.9)
[2020-11-17] MEDS: LEVOTHYROXINE 0.1 MG TAB PO SCH (06:28)
[2020-11-17] MEDS: MYCOPHENOLATE 250 MG CAP PO SCH ×2 (08:41→21:49)
[2020-11-17] MEDS: FUROSEMIDE 20 MG/2 ML VIAL IVP SCH (08:41)
[2020-11-17] MEDS: LACTULOSE 20 GM/30 ML UDC PO SCH ×2 (08:41→21:48)
[2020-11-17] MEDS: hydrALAZINE 10 MG TAB PO SCH ×3 (08:42→17:00)
[2020-11-17] MEDS: CALCIUM CARBONATE 500 MG TAB PO SCH ×2 (08:42→21:49)
[2020-11-17] MEDS: predniSONE 20 MG TAB PO SCH (08:42)
[2020-11-17] MEDS: CINACALCET 30 MG TAB PO SCH (08:43)
--- NOTE | 2020-11-17 08:52 | NUR ---
BLOOD PRESSURE CHECKED, 135/67 PULSE 68 PRIOR TO MEDS ADMINISTER. ADMINISTERED SCHEDULED AM MEDS, MEDS EDUCATION PROVIDED, REINFORCEMENT NEEDED DUE TO MENTAL STATUS, PATIENT IS ALERT ORIENTED X2 TO NAME, PLACE. FLUSHED BEFORE AND AFTER MEDS VIA NGT TUBE IN LEFT NARE. PATIENT AWAKE AND RESTING ON BED AT THIS TIME. DENIED OF ANY DISTRESS. TELE MONITOR IN PLACE. SAFETY MEASURES IN PLACE. BED IN LOW POSITION, HOB ELEVATED 35 DEGREE, BED LOCKED, CALL LIGHT WITHIN REACH, DEMONSTRATED TO PATIENT ON HOW TO USE THE CALL LIGHT AND INSTRUCTED PATIENT TO USE THE CALL LIGHT FOR ANY ASSISTANCE, PATIENT SAID OK.
--- NOTE | 2020-11-17 10:15 | NUR ---
Shon HOUSTON RCP AND Romie VILLAVICENCIO RCP AT [facility] FOR ABG PROCEDURE PATIENT LOC AWAKE AND ALERT PATIENT STATES THAT HE HAS A STENT AT LEFT UPPER EXTREMITY ZERO PULSES AT RIGHT SIDE ABG ATTEMPT X 2 UNABLE TO OBTAIN SAMPLE AT THIS TIME RECEIVABLES SPECIALIST'S TO ATTEMPT AT LATER TIME
[2020-11-17] MEDS ORDERED: POTASSIUM CHLORIDE 20% 40 MEQ/15 ML UDC GT SCH (12:00)
--- NOTE | 2020-11-17 13:15 | NUR ---
BLOOD PRESSURE 136/69 PULSE 68, SCHEDULED MEDS GIVEN VIA NGT AND IVPB, PATIENT IS NAPPING ON BED AT THIS TIME. AROUSABLE TO VOICE. NO SIGNS OF ACUTE DISTRESS NOTED. TELE MONITOR IN PLACE. SAFETY MEASURES IN PLACE.
--- NOTE | 2020-11-17 14:00 | NUR ---
RECEIVED A CALL FROM SISTER CAROLA [phone], UPDATED HER WITH PATIENT'S CONDITION, CAROLA WAS AWARE.
--- NOTE | 2020-11-17 17:08 | NUR ---
BP 91/46 PULSE 55, HELD HYDRALAZINE. PATIENT IS RESTING ON BED. NO SIGNS OF DISTRESS NOTED. SAFETY MEASURES IN PLACE.
--- NOTE | 2020-11-17 19:24 | NUR ---
ENDORSED PATIENT TO PANTRY ATTENDANT NURSE FOR CONTINUITY OF CARE. PATIENT IN STABLE CONDITION. SAFETY MEASURES IN PLACE.
--- NOTE | 2020-11-17 22:00 | NUR ---
NO RESIDUAL ,. Patient continues to tolerate feeding
[2020-11-18] VITALS (8 sets, daily range): BP systolic 108–142; BP diastolic 35–86
--- NOTE | 2020-11-18 00:26 | NUR ---
AFTER CLEANING PATIENT HIS HEART RATE REMAINED 150S . Baseline ws 70 and 80. BLOOD PRESSURE 93/40 O2 SATURATIO N 95 . NOTIFIED
--- NOTE | 2020-11-18 00:26 | NUR ---
Dr Hoffmann responded and gave orders for EKG and if HR Remains the same after 30 minutes then call cardiology
--- NOTE | 2020-11-18 00:35 | NUR ---
PT IS NOW IN AFIB HEART RATE IN THE 160
--- NOTE | 2020-11-18 00:36 | NUR ---
BLOOD PRESSURE 127/80
--- NOTE | 2020-11-18 00:45 | NUR ---
BLOOD PRESSURE 105/63, PT AROUSABLE , RESPONDS THAT HE IS NOT IN PAIN AND FEELING FINE . HR REMAINS 150 , 160S. NO SIGN OF DISTRESS
--- NOTE | 2020-11-18 00:58 | NUR ---
SPOKE WITH Installer Dr Ludwig RED the EKG TO HIM , INFORMED HIM HEART RATE HAS BEEN IN THE 150S, 160S SINCE WE CLEANED HIM EALIER AND OXYGEN SATURATION REMAINS IN THE 95. PROVIDER STATED TO CONTINUE TO [facility] . HE IS AWARE PT IN IN WHAT LOOKS LIKE AFIB
--- NOTE | 2020-11-18 01:41 | NUR ---
BLOOD PRESSURE 124/87, OXYGEN SATURATION 97, IW stated was fine , irritated that i keep checking on him and asking if he was ok " he stated " You asked me already
--- NOTE | 2020-11-18 02:30 | NUR ---
blood pressure 112/73, O2 STA 97% NO SIGN OF DISTRESS , HR 160
--- NOTE | 2020-11-18 02:55 | NUR ---
NOTIFY PHYSICIAN'S AIDE THAT IW HEART RATE REMAINS IN 160S and Change. Asked if he would like to give any orders . Waiting for a response . Addendum: 11/18/20 at 7200 by Agency Nurse 18, RN RN Metal Template Maker Dr Ludwig
--- NOTE | 2020-11-18 03:39 | NUR ---
No response from Cardiology yet . HR RATE RANGES FROM 124 TO 148 Blood pressure and O2 SAT REMAINS STABLE, NO SIGN OF DISTRESS
--- NOTE | 2020-11-18 03:48 | NUR ---
PATIENT CONVERTED TO NORMAL SINUS , WITH PAC , HEART RATE 79
--- NOTE | 2020-11-18 04:28 | NUR ---
Tobacco Cutter DR Ludwig responded and was informed patient converted to sinus rhytym about 30 minutes ago. He stated the fast HR is likely due to his thyroid level.
[2020-11-18] MEDS: LEVOTHYROXINE 0.1 MG TAB PO SCH (05:36)
[2020-11-18] MEDS: PIPERACILLIN/TAZOBACTAM 2.25 GM in DEXTROSE 5% 50 ML IV SCH ×3 (05:37→20:54)
--- NOTE | 2020-11-18 07:30 | NUR ---
RECEIVED REPORT FROM ASSISTANT PRINTER FLOOR COVERING NURSE. PATIENT IN STABLE CONDITION. SAFETY MEASURES IN PLACE, CALL LIGHT WITHIN REACH. WILL CONTINUE TO MONITOR.
[2020-11-18] MEDS: hydrALAZINE 10 MG TAB PO SCH ×3 (09:00→16:21)
--- NOTE | 2020-11-18 09:37 | NUR ---
(11/18/20) RD FOLLOW UP COMPLETED PLEASE REFER TO NUTRITION PROGRESS NOTE UNDER CARE ACTIVITY FOR ESTIMATED NUTRITION NEEDS. RD RECOMMENDATIONS: 1. CONTINUEGLUCERNA 1.2 @ 60 ML/HR. -THIS PROVIDES 1440 ML OF VOLUME, 1728 KCAL AND 86 GM OF PROTEIN. 2. CONTINUE FLUSH OF 50 ML Q4H. 3. IF/WHEN PATIENT BECOMES MORE ALERT AND ORIENTATED RECOMMEND A SWALLOW EVALUATION. RD TO FOLLOW-UP 2-3 DAYS, HIGH RISK. BILLY CHATTERJEE MS, RDN
[2020-11-18] MEDS: CINACALCET 30 MG TAB PO SCH (09:38)
[2020-11-18] MEDS: LACTULOSE 20 GM/30 ML UDC PO SCH ×2 (09:38→21:13)
[2020-11-18] MEDS: MYCOPHENOLATE 250 MG CAP PO SCH ×2 (09:38→21:13)
[2020-11-18] MEDS: CALCIUM CARBONATE 500 MG TAB PO SCH ×2 (09:38→21:12)
[2020-11-18] MEDS: DEXT 5% /NACL 0.9% 1,000 ML IV SCH (09:38)
[2020-11-18] MEDS: predniSONE 20 MG TAB PO SCH (09:38)
[2020-11-18] MEDS: FUROSEMIDE 20 MG/2 ML VIAL IVP SCH (09:39)
--- NOTE | 2020-11-18 09:40 | NUR ---
SCHEDULED MEDICATIONS DUE GIVEN. WILL CONTINUE TO MONITOR
--- NOTE | 2020-11-18 12:18 | NUR ---
SCHEDULED MEDICATIONS DUE GIVEN. WILL CONTINUE TO MONITOR.
[2020-11-18] MEDS ORDERED: NACL 3% 500 ML IV ONE (12:25)
--- NOTE | 2020-11-18 15:00 | NUR ---
ASSISTED TAXI DANCER IN CLEANING AND REPOSITIONING PATIENT. NEW FOAM DRESSING FOR PROTECTION PLACED ON SACRAL AREA. WILL CONTINUE TO MONITOR.
--- NOTE | 2020-11-18 17:17 | NUR ---
PATIENT LYING DOWN IN BED SLEEPING, AROUSABLE BY VOICE. CONDITION UNCHANGED. WILL CONTINUE TO MONITOR.
--- NOTE | 2020-11-18 19:22 | NUR ---
GAVE REPORT TO RN NICU NURSE FOR CONTINUITY OF CARE. PATIENT IN STABLE CONDITION.
[2020-11-18 19:24] LABS: ANION GAP 3.1 (8-16); CREATININE 1.5 mg/dL (0.6-1.3); POTASSIUM 3.6 mmol/L (3.5-5.1)
[2020-11-18 19:32] LABS: CARBON DIOXIDE 42.5 mmol/L (21-32)
--- NOTE | 2020-11-18 19:51 | NUR ---
PATIENT WAS IN HIS BED A+OX 3-4, AT 1 LMP NC, NO DISTRESS, ACKNOWLEDGED, ELECTRIC PILE DRIVER OPERATOR WAS DRAWING A BLOOD FROM HIM.
--- NOTE | 2020-11-18 19:55 | NUR ---
RECEIVED REPORT FROM LAB PLASMA CO2 LEVEL WAS AT 42.5, WAS INFORMED VIA CELLPHONE.
[2020-11-19] VITALS: BP 120/49
[2020-11-19] MEDS: DEXT 5% /NACL 0.9% 1,000 ML IV SCH ×2 (01:20→18:06)
[2020-11-19] MEDS ORDERED: HYDRAGUARD CREAM TP PRN (03:15)
[2020-11-19] MEDS ORDERED: HYDRAGUARD CREAM TP ONE (03:17)
[2020-11-19] MEDS ORDERED: PIPERACILLIN/TAZOBACTAM 2.25 GM VIAL IV ONE (05:34)
[2020-11-19] MEDS: PIPERACILLIN/TAZOBACTAM 2.25 GM in DEXTROSE 5% 50 ML IV SCH ×3 (05:39→21:12)
[2020-11-19] MEDS: LEVOTHYROXINE 0.1 MG TAB PO SCH (05:39)
[2020-11-19 06:29] LABS: BASOPHILS % (AUTO) 0.2 % (0.0-2.0); EOSINOPHILS # (AUTO) 0.1 K/uL (0-0.4); HEMATOCRIT 29.6 % (36-52); HEMOGLOBIN 9.8 g/dL (12.0-18.0); LYMPHOCYTES # (AUTO) 0.4 K/uL (2.0-11.5); LYMPHOCYTES % (AUTO) 14.3 % (20.5-51.1); MEAN CORPUSCULAR HEMOGLOBIN 34 pg (27-31); MEAN CORPUSCULAR HGB CONC 33 g/dL (33-37); MEAN CORPUSCULAR VOLUME 103.6 fL (80-94); MONOCYTES # (AUTO) 0.2 K/uL (0.8-1.0); MONOCYTES % (AUTO) 7.7 % (1.7-9.3); NEUTROPHILS # (AUTO) 2.4 K/uL (1.8-7.7); NEUTROPHILS % (AUTO) 75.8 % (42.2-75.2); PLATELET COUNT (AUTO) 110 K/uL (140-450); RED BLOOD CELL COUNT(AUTO) 2.85 MIL/uL (4.20-6.10); RED CELL DISTRIBUTION WIDTH 16.9 % (11.6-13.7); WHITE BLOOD COUNT (AUTO) 3.1 K/uL (4.8-10.8)
[2020-11-19 06:36] LABS: ANION GAP 1.9 (8-16); CREATININE 1.4 mg/dL (0.6-1.3); POTASSIUM 3.4 mmol/L (3.5-5.1)
[2020-11-19 06:39] LABS: CARBON DIOXIDE 41.5 mmol/L (21-32)
--- NOTE | 2020-11-19 07:41 | NUR ---
RECEIVED REPORT FROM PRODUCTION REPAIRER NURSE. PATIENT IN STABLE CONDITION. CALL LIGHT WITHIN REACH, SAFETY MEASURES IN PLACE, CALL LIGHT WITHIN REACH. WILL CONTINUE TO MONITOR.
[2020-11-19 08:00] VITALS: BP 110/59
[2020-11-19] MEDS: LACTULOSE 20 GM/30 ML UDC PO SCH ×2 (09:00→21:09)
[2020-11-19] MEDS: hydrALAZINE 10 MG TAB PO SCH ×3 (09:00→16:01)
[2020-11-19] MEDS: MYCOPHENOLATE 250 MG CAP PO SCH ×2 (09:26→21:09)
[2020-11-19] MEDS: CINACALCET 30 MG TAB PO SCH (09:26)
[2020-11-19] MEDS: predniSONE 20 MG TAB PO SCH (09:27)
[2020-11-19] MEDS: FUROSEMIDE 20 MG/2 ML VIAL IVP SCH (09:27)
[2020-11-19] MEDS: CALCIUM CARBONATE 500 MG TAB PO SCH ×2 (09:27→21:10)
--- NOTE | 2020-11-19 09:33 | NUR ---
SCHEDULED MEDICATIONS DUE GIVEN. WILL CONTINUE TO MONITOR.
[2020-11-19] MEDS ORDERED: POTASSIUM CHLORIDE 20% 40 MEQ/15 ML UDC NG SCH (10:00)
[2020-11-19 12:00] VITALS: BP 116/72
[2020-11-19] MEDS: HYDRAGUARD CREAM TP SCH (12:27)
--- NOTE | 2020-11-19 12:27 | NUR ---
SCHEDULED MEDICATIONS DUE GIVEN. WILL CONTINUE TO MONITOR.
[2020-11-19 16:03] VITALS: BP 121/64
--- NOTE | 2020-11-19 19:22 | NUR ---
GAVE REPORT TO DARK ROOM ATTENDANT NURSE FOR CONTINUITY OF CARE. PATIENT IN STABLE CONDITION.
--- NOTE | 2020-11-19 19:23 | NUR ---
RECEIVING PATIENT FROM AM NURSE FOR CONTINUITY OF CARE. PATIENT IS A/A/O X3. RESPIRATORY EVEN AND UNLABORED, ON 1L O2 NC, O2 SAT 98%. NO SIGN OF DISTRESS NOTED. SKIN WARM, DRY, NON-DIAPHORETIC, REDNESS NOTED IN SACRAL. PICC NOTED ON BRITTANY, IS INFUSING FLUID. LEFT AV FISTULA ACCESS NOT IN USE. BUTLER CATHETER IN PLACE. CARE OF PLAN DISCUSSED. PRECAUTION IN PLACE. CALL LIGHT WITHIN REACH. WILL CONTINUE TO MONITOR.
[2020-11-19 20:00] VITALS: BP 130/56
--- NOTE | 2020-11-19 21:09 | NUR ---
SCHEDULE MEDICATIONS GIVEN ORDERED. PATIENT TOLERATED WELL. CALL LIGHT WITHIN REACH. PRECAUTION IN PLACE. WILL CONTINUE TO MONITOR.
--- NOTE | 2020-11-19 22:00 | NUR ---
ROUND CHECK. PATIENT IS SLEEPING, CHEST RISE AND FALL NOTED. HOB ELEVATED. CALL LIGHT WITHIN REACH. WILL CONTINUE TO MONITOR.
--- NOTE | 2020-11-20 | NUR ---
ROUND CHECK. PATIENT IS AWAKE, WATCHING TV. NO SIGN OF RESPIRATORY DISTRESS NOTED. HOB ELEVATED. PRECAUTION IN PLACE. CALL LIGHT WITHIN REACH. WILL CONTINUE TO MONITOR.
--- NOTE | 2020-11-20 02:00 | NUR ---
ROUND CHECK. PATIENT IS AWAKE, WATCHING TV. NO S/S OF DISTRESS AT THIS TIME. CALL LIGHT IS WITHIN REACH. ALL SAFETY MEASURES ARE IN PLACE. WILL CONTINUE TO MONITOR.
[2020-11-20 04:00] VITALS: BP 128/52
[2020-11-20] MEDS: HYDRAGUARD CREAM TP SCH (04:00)
--- NOTE | 2020-11-20 04:00 | NUR ---
ROUND CHECK. PATIENT IS SLEEPING, CHEST RISE AND FALL NOTED. HOB ELEVATED. CALL LIGHT WITHIN REACH. PRECAUTION IN PLACE. WILL CONTINUE TO MONITOR.
[2020-11-20] MEDS: PIPERACILLIN/TAZOBACTAM 2.25 GM in DEXTROSE 5% 50 ML IV SCH (04:42)
--- NOTE | 2020-11-20 04:42 | NUR ---
MEDICATION GIVEN ORDERED. EDUCATION GIVEN. PT VERBALIZED UNDERSTANDING. NO S/S OF DISTRESS AT THIS TIME. CALL LIGHT IS WITHIN REACH. ALL SAFETY MEASURES ARE IN PLACE. WILL CONTINUE TO MONITOR.
[2020-11-20 05:33] LABS: BASOPHILS % (AUTO) 0.2 % (0.0-2.0); EOSINOPHILS # (AUTO) 0.1 K/uL (0-0.4); EOSINOPHILS % (AUTO) 2.2 % (0.0-4.0); HEMATOCRIT 28.8 % (36-52); HEMOGLOBIN 9.3 g/dL (12.0-18.0); LYMPHOCYTES # (AUTO) 0.6 K/uL (2.0-11.5); LYMPHOCYTES % (AUTO) 17.2 % (20.5-51.1); MEAN CORPUSCULAR HEMOGLOBIN 33 pg (27-31); MEAN CORPUSCULAR HGB CONC 32 g/dL (33-37); MEAN CORPUSCULAR VOLUME 103.6 fL (80-94); MONOCYTES # (AUTO) 0.3 K/uL (0.8-1.0); MONOCYTES % (AUTO) 7.5 % (1.7-9.3); NEUTROPHILS # (AUTO) 2.7 K/uL (1.8-7.7); NEUTROPHILS % (AUTO) 72.9 % (42.2-75.2); PLATELET COUNT (AUTO) 101 K/uL (140-450); RED BLOOD CELL COUNT(AUTO) 2.78 MIL/uL (4.20-6.10); RED CELL DISTRIBUTION WIDTH 16.9 % (11.6-13.7); WHITE BLOOD COUNT (AUTO) 3.7 K/uL (4.8-10.8)
[2020-11-20 05:45] LABS: ANION GAP 6.3 (8-16); CARBON DIOXIDE 34.7 mmol/L (21-32); CREATININE 1.4 mg/dL (0.6-1.3)
[2020-11-20] MEDS ORDERED: POTASSIUM CHLORIDE 20% 40 MEQ/15 ML UDC NG PRN (06:00)
[2020-11-20] MEDS: LEVOTHYROXINE 0.1 MG TAB PO SCH (06:17)
--- NOTE | 2020-11-20 06:17 | NUR ---
MEDICATION GIVEN PER MD ORDER. EDUCATION GIVEN. PT VERBALIZED UNDERSTANDING. NO SIGN OF DISTRESS NOTED. HOB ELEVATED. CALL LIGHT IS WITHIN REACH. ALL SAFETY MEASURES ARE IN PLACE. WILL CONTINUE TO MONITOR.
--- NOTE | 2020-11-20 07:05 | NUR ---
REC'D REPORT FROM TREE PRUNER NURSE, PT STABLE. ON 1L NC, A/Ox3, CALL LIGHT WITHIN REACH, BED LOWEST POSITION. NO SIGN OF DISTRESS, PT CAN MAKE NEEDS KNOW. WILL CONTINUE TO MONITOR.
--- NOTE | 2020-11-20 07:15 | NUR ---
ENDORSED PATIENT TO AM NURSE FOR CONTINUITY OF CARE. PATIENT IS STABLE.
[2020-11-20 08:00] VITALS: BP 113/72
[2020-11-20] MEDS ORDERED: predniSONE 10 MG TAB PO SCH (09:00)
[2020-11-20] MEDS: CINACALCET 30 MG TAB PO SCH (09:47)
[2020-11-20] MEDS: CALCIUM CARBONATE 500 MG TAB PO SCH (09:47)
[2020-11-20] MEDS: FUROSEMIDE 20 MG/2 ML VIAL IVP SCH (09:48)
[2020-11-20] MEDS: MYCOPHENOLATE 250 MG CAP PO SCH (09:48)
[2020-11-20] MEDS: hydrALAZINE 10 MG TAB PO SCH (09:49)
[2020-11-20] MEDS: LACTULOSE 20 GM/30 ML UDC PO SCH (09:49)
--- NOTE | 2020-11-20 10:11 | NUR ---
ADMINISTERED MEDICATIONS PER MD ORDER, MOA AND SIDE EFFECTS DISCUSSED WITH PT WHO VERBALLY UNDERSTOOD. PT STATES HE CAN STILL TASTED THE FORMULA THAT HE WAS RECEIVED VIA BULXTUBE, WILL CONTINUE TO MONITOR FOR HEARTBURN WHICH HE DENIES AT THIS TIME. PT TOLERATED MEDICATIONS WELL. PT CAN MAKE NEEDS KNOW, WILL CONTINUE TO MONITOR.
[2020-11-20] MEDS: DEXT 5% /NACL 0.9% 1,000 ML IV SCH (10:40)
[2020-11-20] MEDS ORDERED: SYN.1 PO (12:39)
[2020-11-20] MEDS ORDERED: AMOX-999 PO (12:39)
--- NOTE | 2020-11-20 14:43 | NUR ---
PT DISCHARGED VIA WHEELCHAIR, ID BAND REMOVED, PICC LINE REMOVED WITH NO RESISTANCE, PRESSURE APPLIED TO AVOID BLEEDING, URINARY INDWELLING CATHETER REMOVED, 10ML OF WATER DEFLATED PRIOR TO REMOVAL. PT TOLERATED PROCEDURES WELL, DISCHARGE PACKET GIVEN. MEDICATIONS REVIEWED AND MOA EXPLAINED. PT VERBALIZED UNDERSTANDING. PERSONAL BELONGINGS TAKEN WITH PT BY BROTHER. STABLE UPON DISCHARGE
== END 2020-11-20 16:04 | disposition home health service (06) | DRG 871 ==
LOC: MED 01:32 → MTU 05:13 → MIC 17:17 → MTU 11-17 07:40
PROC: 02H633Z Insertion of Infusion Device into Right Atrium, Percutaneous Approach (ICD-10-PCS; principal; 2020-11-15)
PROC: B548ZZA Ultrasonography of Superior Vena Cava, Guidance (ICD-10-PCS; 2020-11-15)
DX: A41.9 Sepsis, unspecified organism (principal); J18.9 Pneumonia, unspecified organism; I50.43 Acute on chronic combined systolic (congestive) and diastolic (congestive) heart failure; N17.0 Acute kidney failure with tubular necrosis; E03.5 Myxedema coma; G93.41 Metabolic encephalopathy; N18.6 End stage renal disease; J96.01 Acute respiratory failure with hypoxia; J96.02 Acute respiratory failure with hypercapnia; D84.9 Immunodeficiency, unspecified; T86.19 Other complication of kidney transplant; N17.9 Acute kidney failure, unspecified; I13.2 Hypertensive heart and chronic kidney disease with heart failure and with stage 5 chronic kidney disease, or end stage renal disease; Z94.0 Kidney transplant status; D68.59 Other primary thrombophilia; E87.4 Mixed disorder of acid-base balance; E87.6 Hypokalemia; R13.10 Dysphagia, unspecified; D50.9 Iron deficiency anemia, unspecified; K72.90 Hepatic failure, unspecified without coma; D53.9 Nutritional anemia, unspecified; E03.9 Hypothyroidism, unspecified; Y83.0 Surgical operation with transplant of whole organ as the cause of abnormal reaction of the patient, or of later complication, without mention of misadventure at the time of the procedure; B37.9 Candidiasis, unspecified; E21.2 Other hyperparathyroidism; Z20.822 Contact with and (suspected) exposure to COVID-19; I25.10 Atherosclerotic heart disease of native coronary artery without angina pectoris; Z99.2 Dependence on renal dialysis; Z95.1 Presence of aortocoronary bypass graft; Z91.19 Patient's noncompliance with other medical treatment and regimen; Z79.52 Long term (current) use of systemic steroids; Z59.0 Homelessness; Z79.899 Other long term (current) drug therapy; Z90.49 Acquired absence of other specified parts of digestive tract; Q63.1 Lobulated, fused and horseshoe kidney
CPT/HCPCS: 36415; 36600; 70450; 71045; 76604; 76770; 78582; 80048; 80053; 80305; 81001; 82140; 82533; 82550; 82553; 82728; 82803; 83036; 83605; 83615; 83690; 83735; 83880; 84100; 84134; 84300; 84436; 84439; 84443; 84484; 85025; 85379; 85384; 85610; 85730; 86140; 87040; 87081; 87086; 87205; 87420; 87804; 93005; 93971; 96365; 96375; 97110; 97530; 99285; C1758; J0360; J1644; J1720; J1940; J2310; J2543; J3480; J7030; J7042; J7060; J7507; J7512; J7517; U0003

== ENCOUNTER 2021-04-29 22:14 | Emergency (ER) | payer OTHER ==
[~2021-04-29] VITALS: Ht 160 cm; Wt 71.2 kg
[~2021-04-29 22:14] MED LIST: AMOX-999 PO; B CO1CAP11 PO; CALC-575 PO; CEL250 PO; LIOT0.008 PO; PRED5TAB8 PO; SEN30 PO; SYN.1 PO; TACR1CAP17 PO; VALG450T PO
[2021-04-30 01:13] VITALS: BP 150/79
--- NOTE | 2021-04-30 01:22 | NUR ---
PT A/W IN TENT FOR EVALUATION
[2021-04-30] MEDS ORDERED: BENZ-196 PO (03:06)
[2021-04-30] MEDS ORDERED: AMOX-1000 PO (03:06)
--- NOTE | 2021-04-30 03:15 | NUR ---
PCR SWAB COLLECTED AND TAKEN TO LAB.
--- NOTE | 2021-04-30 03:20 | NUR ---
Patient discharged with v/s stable. Written and verbal after care instructions given and explained. Patient alert, oriented and verbalized understanding of instructions. Ambulatory with steady gait. All questions addressed prior to discharge. ID band removed. Patient advised to follow up with PMD. Rx of AUGMENTIN AND TESSALON PERLE given. Patient educated on indication of medication including possible reaction and side effects. Opportunity to ask questions provided and answered.
--- NOTE | 2021-05-02 13:44 | NUR ---
LATE ENTRY- COVID RESULTS RECEIVED FROM LAB. COVID +. COPY SENT TO INFECTION CONTROL MAILBOX.
== END 2021-04-30 03:20 | disposition home or self-care (01) ==
LOC: MED 22:14
DX: J18.9 Pneumonia, unspecified organism (principal); Z20.822 Contact with and (suspected) exposure to COVID-19; R05 Cough; Z79.899 Other long term (current) drug therapy
CPT/HCPCS: 71045; 99284; U0003